=== PATIENT | female | born 1990 | race Caucasian/White ===

== ENCOUNTER 2016-07-23 15:48 | Inpatient (IN) | payer MEDICAID ==
[~2016-07-23] VITALS: Ht 170.2 cm; Wt 110.5 kg
[~2016-07-23 15:48] MED LIST: MARNATAL-F1 CAP PO; MOTRIN 200200 MG/TAB PO; NO HOME MEDICATIONS; NORCO 325 MG-7.1 TAB PO; PRENATAL1 TA1 PO; PROMETHAZINE12.5 M5 PO; ROXICODONE 55 MG/TAB PO; TYLENOL 325MG325 MG PO
[2016-07-23 16:38] LABS: PH 6 (5-8); URINE APPEARANCE Clear; URINE BILIRUBIN Negative (NEGATIVE); URINE BLOOD Negative (NEGATIVE); URINE COLOR Yellow; URINE GLUCOSE Negative (NEGATIVE); URINE KETONE 2+ (NEGATIVE); URINE UROBILINOGEN Negative (NEGATIVE)
[2016-07-23 16:48] LABS: SQUAMOUS EPITHELIAL 0-2 /hpf; URINE BACTERIA Occasional /hpf; URINE RBC 0-2 /hpf; URINE WBC 0-2 /hpf
[2016-07-23 17:38] LABS: BASO % 0.2 % (0.0-2.0); EOS % 0.1 % (0-4.0); GRAN # 13.1 (1.4-6.5); GRAN % 89.7 % (42.2-75.2); LYMPH % 6.5 % (20.0-51.0); MEAN CELL VOLUME 86 fl (80.0-100.0); MEAN CORPUSCULAR HGB CONC 33 g/dl (33.0-37.0); MEAN PLATELET VOLUME 10.1 fl (7.4-10.4); MONO # 0.4 (0.1-0.6); MONO % 2.7 % (1.7-9.3); PLATELET COUNT 172 K/mm3 (130-400); RED BLOOD COUNT 3.72 M/mm3 (4.10-5.30); REDCELL DISTRIBUTION WIDTH-CV 13.2 % (11.5-14.5); WHITE BLOOD COUNT 14.6 K/mm3 (4.8-10.8)
[2016-07-23 17:39] LABS: HEMATOCRIT 32.1 % (37.0-47.0); HEMOGLOBIN 10.6 g/dl (12.5-16.0); MEAN CORPUSCULAR HEMOGLOBIN 28 pg (27.0-31.0)
[2016-07-23 17:52] LABS: ADJUSTED CALCIUM 8.8 mg/dL (8.4-10.2); ALBUMIN 3.4 gm/dL (3.5-5.0); BILIRUBIN,TOTAL 0.6 mg/dL (0.0-1.0); C-REACTIVE PROTEIN 1.7 mg/dL (0.0-0.9); CALCIUM 8.3 mg/dL (8.4-10.2); CREATININE, serum 0.46 mg/dL (0.52-1.25); POTASSIUM 3.7 mmol/L (3.4-5.0); TOTAL PROTEIN 6.6 gm/dL (6.4-8.2)
[2016-07-23 20:55] VITALS: BP 135/77; PULSE 76; TEMP 98.4
[2016-07-23 20:58] VITALS: BP 135/77; PULSE 76; TEMP 98.4
[2016-07-23 23:47] VITALS: BP 133/73; PULSE 90; TEMP 98.6
[2016-07-24] VITALS (9 sets, daily range): BP systolic 123–139; BP diastolic 74–81; PULSE 85–104; TEMP 97.9–99.2
[2016-07-24 07:44] LABS: BASO % 0.2 % (0.0-2.0); EOS % 0.3 % (0-4.0); GRAN # 9.4 (1.4-6.5); GRAN % 78.7 % (42.2-75.2); LYMPH # 1.6 (1.2-3.4); LYMPH % 13.8 % (20.0-51.0); MEAN CELL VOLUME 85 fl (80.0-100.0); MEAN CORPUSCULAR HGB CONC 34 g/dl (33.0-37.0); MEAN PLATELET VOLUME 9.9 fl (7.4-10.4); MONO # 0.7 (0.1-0.6); PLATELET COUNT 154 K/mm3 (130-400); REDCELL DISTRIBUTION WIDTH-CV 13.2 % (11.5-14.5); WHITE BLOOD COUNT 11.9 K/mm3 (4.8-10.8)
[2016-07-24 07:52] LABS: HEMATOCRIT 28.9 % (37.0-47.0); HEMOGLOBIN 9.8 g/dl (12.5-16.0); MEAN CORPUSCULAR HEMOGLOBIN 29 pg (27.0-31.0)
[2016-07-24 07:57] LABS: ADJUSTED CALCIUM 8.9 mg/dL (8.4-10.2); ALBUMIN 2.9 gm/dL (3.5-5.0); BILIRUBIN,TOTAL 0.7 mg/dL (0.0-1.0); CREATININE, serum 0.42 mg/dL (0.52-1.25); POTASSIUM 3.1 mmol/L (3.4-5.0); TOTAL PROTEIN 5.8 gm/dL (6.4-8.2)
[2016-07-25] VITALS (8 sets, daily range): BP systolic 95–123; BP diastolic 47–77; PULSE 78–95; TEMP 97.7–99.3
[2016-07-25 08:34] LABS: BASO % 0.3 % (0.0-2.0); EOS # 0.1 (0.0-0.7); EOS % 0.8 % (0-4.0); GRAN # 7.3 (1.4-6.5); GRAN % 73.1 % (42.2-75.2); LYMPH # 1.8 (1.2-3.4); LYMPH % 17.7 % (20.0-51.0); MEAN CELL VOLUME 86 fl (80.0-100.0); MEAN CORPUSCULAR HGB CONC 33 g/dl (33.0-37.0); MEAN PLATELET VOLUME 10.2 fl (7.4-10.4); MONO # 0.7 (0.1-0.6); PLATELET COUNT 161 K/mm3 (130-400); RED BLOOD COUNT 3.14 M/mm3 (4.10-5.30); REDCELL DISTRIBUTION WIDTH-CV 13.7 % (11.5-14.5); WHITE BLOOD COUNT 9.9 K/mm3 (4.8-10.8)
[2016-07-25 08:44] LABS: HEMATOCRIT 27.1 % (37.0-47.0); MEAN CORPUSCULAR HEMOGLOBIN 29 pg (27.0-31.0)
[2016-07-25 08:45] LABS: ALBUMIN 2.7 gm/dL (3.5-5.0); CALCIUM 7.8 mg/dL (8.4-10.2); CREATININE, serum 0.47 mg/dL (0.52-1.25); PHOSPHOROUS 3.2 mg/dL (2.5-4.5); POTASSIUM 3.3 mmol/L (3.4-5.0)
[2016-07-25 12:50] LABS: PH 6 (5-8); URINE APPEARANCE Clear; URINE BILIRUBIN Negative (NEGATIVE); URINE BLOOD Negative (NEGATIVE); URINE COLOR Yellow; URINE GLUCOSE Negative (NEGATIVE); URINE KETONE Negative (NEGATIVE); URINE UROBILINOGEN Negative (NEGATIVE)
[2016-07-25 13:03] LABS: URINE WBC 0-2 /hpf
[2016-07-25 15:14] LABS: HEMATOCRIT 27.1 % (37.0-47.0); HEMOGLOBIN 9.1 g/dl (12.5-16.0)
[2016-07-26 04:40] VITALS: BP 113/65; PULSE 74; TEMP 97.9
[2016-07-26 06:52] LABS: BASO % 0.2 % (0.0-2.0); EOS # 0.1 (0.0-0.7); EOS % 1.8 % (0-4.0); GRAN # 4.1 (1.4-6.5); GRAN % 65.8 % (42.2-75.2); LYMPH # 1.5 (1.2-3.4); LYMPH % 24.4 % (20.0-51.0); MEAN CELL VOLUME 86 fl (80.0-100.0); MEAN CORPUSCULAR HGB CONC 33 g/dl (33.0-37.0); MEAN PLATELET VOLUME 9.4 fl (7.4-10.4); MONO # 0.4 (0.1-0.6); MONO % 6.8 % (1.7-9.3); PLATELET COUNT 151 K/mm3 (130-400); RED BLOOD COUNT 3.35 M/mm3 (4.10-5.30); REDCELL DISTRIBUTION WIDTH-CV 13.6 % (11.5-14.5); WHITE BLOOD COUNT 6.2 K/mm3 (4.8-10.8)
[2016-07-26 06:56] LABS: HEMATOCRIT 28.7 % (37.0-47.0); HEMOGLOBIN 9.6 g/dl (12.5-16.0); MEAN CORPUSCULAR HEMOGLOBIN 29 pg (27.0-31.0)
[2016-07-26 07:37] LABS: CALCIUM 8.1 mg/dL (8.4-10.2); CREATININE, serum 0.49 mg/dL (0.52-1.25); POTASSIUM 3.5 mmol/L (3.4-5.0)
[2016-07-26] MEDS ORDERED: PERCOCET 325 MG1 TA2 PO (08:01)
[2016-07-26] MEDS ORDERED: AMOXICILLIN 8751 TAB PO (08:01)
[2016-07-26 08:15] VITALS: BP 107/61; PULSE 68; TEMP 98.2
== END 2016-07-26 10:15 | disposition home or self-care (01) | DRG 781 ==
LOC: COL.ER 15:48 → OB 19:39
PROVIDERS: Emergency Medicine; Obstetrics & Gynecology; Surgery
PROC: 0DTJ4ZZ Resection of Appendix, Percutaneous Endoscopic Approach (ICD-10-PCS; principal; 2016-07-24 11:00)
DX: O99.612 Diseases of the digestive system complicating pregnancy, second trimester (principal); K35.2 Acute appendicitis with generalized peritonitis; O99.282 Endocrine, nutritional and metabolic diseases complicating pregnancy, second trimester; E87.6 Hypokalemia; O99.012 Anemia complicating pregnancy, second trimester; D64.9 Anemia, unspecified; Z3A.23 23 weeks gestation of pregnancy
CPT/HCPCS: OP; G0378; J0330; J0696; J2270; J2405; J2543; J2550; J2704; J2710; J3010; J7030; J7050; J7120

== ENCOUNTER → 2016-08-09 | Outpatient (CLI) | payer OTHER, MEDICAID ==
[~2016-08-09] MED LIST changes: +AMOXICILLIN 8751 TAB PO; +IBU600 MG PO; +LOVENOX 4040 MG/0.4 SQ; +PERCOCET 325 MG1 TA2 PO; +PROCARDIA XL 3030 MG PO
== END ==
LOC: COL.RAD 11:15
DX: O26.892 Other specified pregnancy related conditions, second trimester (principal); Z3A.25 25 weeks gestation of pregnancy; R10.84 Generalized abdominal pain

== ENCOUNTER 2016-10-17 21:32 | Emergency (ER) | payer OTHER, MEDICAID ==
[~2016-10-17] VITALS: Ht 170.2 cm; Wt 117.6 kg
[~2016-10-17 21:32] MED LIST changes: -IBU600 MG PO; -LOVENOX 4040 MG/0.4 SQ; -PROCARDIA XL 3030 MG PO
[2016-10-17 21:41] VITALS: BP 136/95; PULSE 103; TEMP 98.3
== END 2016-10-17 23:43 | disposition home or self-care (01) ==
LOC: COL.ER 21:32
DX: O12.03 Gestational edema, third trimester (principal); Z3A.36 36 weeks gestation of pregnancy

== ENCOUNTER 2016-10-22 18:15 | Inpatient (IN) | payer OTHER, MEDICAID ==
[~2016-10-22] VITALS: Ht 170.2 cm; Wt 114.6 kg
[2016-10-22] VITALS (23 sets, daily range): BP systolic 114–170; BP diastolic 72–111; PULSE 63–104; TEMP 97.8–98.6
[2016-10-22 19:03] LABS: BASO % 0.4 % (0.0-2.0); EOS # 0.2 (0.0-0.7); EOS % 1.3 % (0-4.0); GRAN # 7.7 (1.4-6.5); GRAN % 67.4 % (42.2-75.2); LYMPH # 2.5 (1.2-3.4); LYMPH % 21.6 % (20.0-51.0); MEAN CELL VOLUME 84 fl (80.0-100.0); MEAN CORPUSCULAR HGB CONC 34 g/dl (33.0-37.0); MEAN PLATELET VOLUME 10.9 fl (7.4-10.4); MONO % 8.4 % (1.7-9.3); PLATELET COUNT 189 K/mm3 (130-400); RED BLOOD COUNT 3.89 M/mm3 (4.10-5.30); REDCELL DISTRIBUTION WIDTH-CV 13.9 % (11.5-14.5); WHITE BLOOD COUNT 11.4 K/mm3 (4.8-10.8)
[2016-10-22 19:07] LABS: HEMATOCRIT 32.5 % (37.0-47.0); HEMOGLOBIN 11.1 g/dl (12.5-16.0); MEAN CORPUSCULAR HEMOGLOBIN 29 pg (27.0-31.0)
[2016-10-22 19:14] LABS: ADJUSTED CALCIUM 10.1 mg/dL (8.4-10.2); ALBUMIN 3.3 gm/dL (3.5-5.0); BILIRUBIN,TOTAL 0.4 mg/dL (0.0-1.0); CALCIUM 9.5 mg/dL (8.4-10.2); CREATININE, serum 0.54 mg/dL (0.52-1.25); POTASSIUM 3.9 mmol/L (3.4-5.0); TOTAL PROTEIN 6.5 gm/dL (6.4-8.2)
[2016-10-22 20:00] LABS: PH 6 (5-8); URINE APPEARANCE Clear; URINE BACTERIA Rare /hpf; URINE BILIRUBIN Negative (NEGATIVE); URINE BLOOD Negative (NEGATIVE); URINE COLOR Yellow; URINE GLUCOSE Negative (NEGATIVE); URINE KETONE Negative (NEGATIVE); URINE RBC 0-2 /hpf; URINE UROBILINOGEN Negative (NEGATIVE); URINE WBC 0-2 /hpf
[2016-10-22 22:43] LABS: MAGNESIUM 1.6 mg/dL (1.6-2.3)
[2016-10-23] VITALS (35 sets, daily range): BP systolic 122–152; BP diastolic 65–95; PULSE 67–87; TEMP 74–98.1
[2016-10-23 07:59] LABS: BASO % 0.2 % (0.0-2.0); EOS % 0.2 % (0-4.0); GRAN # 9.8 (1.4-6.5); GRAN % 75.8 % (42.2-75.2); HEMATOCRIT 31.6 % (37.0-47.0); HEMOGLOBIN 10.4 g/dl (12.5-16.0); LYMPH # 2.1 (1.2-3.4); LYMPH % 15.9 % (20.0-51.0); MEAN CELL VOLUME 87 fl (80.0-100.0); MEAN CORPUSCULAR HEMOGLOBIN 29 pg (27.0-31.0); MEAN CORPUSCULAR HGB CONC 33 g/dl (33.0-37.0); MEAN PLATELET VOLUME 10.7 fl (7.4-10.4); MONO # 0.9 (0.1-0.6); PLATELET COUNT 162 K/mm3 (130-400); RED BLOOD COUNT 3.64 M/mm3 (4.10-5.30); WHITE BLOOD COUNT 12.9 K/mm3 (4.8-10.8)
[2016-10-23 08:09] LABS: ALBUMIN 2.9 gm/dL (3.5-5.0); BILIRUBIN,TOTAL 0.4 mg/dL (0.0-1.0); CALCIUM 8.1 mg/dL (8.4-10.2); CREATININE, serum 0.75 mg/dL (0.52-1.25); TOTAL PROTEIN 5.9 gm/dL (6.4-8.2)
[2016-10-23] MEDS ORDERED: IBU600 MG PO (12:14)
[2016-10-23] MEDS ORDERED: LOVENOX 4040 MG/0.4 SQ (12:14)
[2016-10-23] MEDS ORDERED: PERCOCET 325 MG1 TA2 PO (12:15)
[2016-10-24] VITALS: BP 137/83; PULSE 81; TEMP 98
[2016-10-24 04:41] VITALS: BP 149/96; PULSE 84; TEMP 98
[2016-10-24 04:43] VITALS: BP 139/94; PULSE 84
[2016-10-24 09:31] VITALS: BP 138/97; PULSE 69; TEMP 97.9
[2016-10-24 16:00] VITALS: BP 139/86; PULSE 79; TEMP 97.7
[2016-10-24 20:30] VITALS: BP 132/88; PULSE 76; TEMP 98.5
[2016-10-25 08:15] VITALS: BP 152/93; PULSE 67; TEMP 98.5
[2016-10-25 09:00] VITALS: BP 149/91; PULSE 64
[2016-10-25] MEDS ORDERED: PROCARDIA XL 3030 MG PO (09:28)
[2016-10-25 10:28] VITALS: BP 146/90
== END 2016-10-25 11:30 | disposition home or self-care (01) | DRG 765 ==
LOC: LDR 18:15 → LDRO 18:15 → LDR 20:59 → OB 20:59
PROVIDERS: Obstetrics & Gynecology
PROC: 10D00Z1 Extraction of Products of Conception, Low, Open Approach (ICD-10-PCS; principal; 2016-10-22)
DX: O14.14 Severe pre-eclampsia complicating childbirth (principal); O36.0130 Maternal care for anti-D [Rh] antibodies, third trimester, not applicable or unspecified; D62 Acute posthemorrhagic anemia; O99.02 Anemia complicating childbirth; O34.211 Maternal care for low transverse scar from previous cesarean delivery; N85.8 Other specified noninflammatory disorders of uterus; Z3A.36 36 weeks gestation of pregnancy; Z37.0 Single live birth
CPT/HCPCS: J0690; J1650; J1885; J2175; J2370; J2405; J2590; J2791; J3010; J3475; J7120